=== PATIENT | male | born 1955 | race Caucasian/White ===

== ENCOUNTER 2022-01-02 20:53 | Emergency (ER) | payer BC ==
[~2022-01-02] VITALS: Ht 175.3 cm; Wt 95.3 kg
--- NOTE | 2022-01-02 21:32 | NUR ---
[id number] C/O POSSIBLE OD. [facility] ADMIN NARCAN 4MG IV. BS 113. UPON ASSESSMENT PT RESPONDS TO PAINFUL STIMULI, AGGITATED WITH STAFF VERBALLY AND PHYSICALLY. NOT COOPERATIVE WITH QUESTIONING AXO x0 ON ASSESSMENT [facility] [id number] (11). PT PLACED ON MONITOR AND CHANGED INTO GOWN. SITTER AT BEDSIDE AND SAFETY MEASURES IN PLACE
[2022-01-02] MEDS ORDERED: HALOPERIDOL LACTATE INJ 5 MG/ML VIAL ONE (21:49)
[2022-01-02] MEDS ORDERED: diphenhydrAMINE HCL 50 MG/ML VIAL ONE (21:49)
[2022-01-02] MEDS ORDERED: LORAZEPAM INJ 2 MG/ML VIAL ONE (21:50)
[2022-01-02] MEDS ORDERED: LORAZEPAM INJ 2 MG/ML VIAL IM ONE (22:00)
[2022-01-02] MEDS ORDERED: diphenhydrAMINE HCL 50 MG/ML VIAL IM ONE (22:00)
[2022-01-02] MEDS ORDERED: HALOPERIDOL LACTATE INJ 5 MG/ML VIAL IM ONE (22:00)
[2022-01-02 22:54] LABS: BASOPHILS # (AUTO) 0.1 K/uL (0.0-0.2); BASOPHILS % (AUTO) 0.9 % (0.0-2.0); EOSINOPHILS % (AUTO) 2.1 % (0.0-6.0); HEMATOCRIT 45 % (39-51); HEMOGLOBIN 15.1 g/dL (13.5-17.5); LYMPHOCYTES # (AUTO) 2.9 K/uL (0.8-4.8); LYMPHOCYTES % (AUTO) 37.2 % (20.0-44.0); MEAN CORPUSCULAR HGB CONC 34 g/dl (31.0-36.0); MEAN CORPUSCULAR VOLUME 89 fL (80-96); MONOCYTES # (AUTO) 0.4 K/uL (0.1-1.30); MONOCYTES % (AUTO) 5.4 % (2.0-12.0); NEUTROPHILS # (AUTO) 4.3 K/uL (1.8-8.9); NEUTROPHILS % (AUTO) 54.4 % (43.0-81.0); PLATELET COUNT (AUTO) 189 K/uL (150-450); RED BLOOD CELL COUNT(AUTO) 5.09 MIL/uL (4.5-6.0); WHITE BLOOD COUNT (AUTO) 7.9 K/uL (4.3-11.0)
--- NOTE | 2022-01-02 23:00 | NUR ---
URINE SENT TO LAB
[2022-01-02 23:10] LABS: CREATININE 0.9 mg/dL (0.6-1.3); POTASSIUM 3.8 mmol/L (3.5-5.1)
[2022-01-02 23:25] LABS: ALBUMIN 3.5 g/dL (3.4-5.0); BILIRUBIN,DIRECT 0.1 mg/dL (0.0-0.2); BILIRUBIN,TOTAL 0.2 mg/dL (0.2-1.0); TOTAL PROTEIN, SERUM 7.1 g/dL (6.4-8.2)
[2022-01-02 23:45] LABS: BILIRUBIN,URINE NEGATIVE (NEGATIVE); COLOR,URINE YELLOW (YELLOW); LEUKOCYTE ESTERASE ,URINE NEGATIVE (NEGATIVE); NITRITE, URINE NEGATIVE (NEGATIVE); PH,URINE 5.5 (5.0-8.0); PROTEIN,URINE NEGATIVE (NEGATIVE); UGLUCOSE NEGATIVE (NEGATIVE); UROBILINOGEN,URINE 0.2 EU/dL (0.2)
[2022-01-02 23:48] LABS: BACTERIA,URINE Rare /HPF (None Seen); SQUAMOUS EPITHELIAL CELL,UR Few /HPF (None Seen)
--- NOTE | 2022-01-03 01:41 | NUR ---
PT AWAKE AND ALERT X4 BREATHING UNLABORED. PASSED SWALLOW EVAL. MD MADE AWARE.
--- NOTE | 2022-01-03 02:00 | NUR ---
Patient discharged to home in stable condition. Written and verbal after care instructions given. Patient verbalizes understanding of instruction.IV removed. Catheter intact and site benign. Pressure and 4x4 applied to site. No bleeding noted.
[2022-01-03 02:12] VITALS: BP 164/74
== END 2022-01-03 02:03 | disposition home or self-care (01) ==
LOC: ER 21:03
DX: F10.129 Alcohol abuse with intoxication, unspecified (principal); T50.901A Poisoning by unspecified drugs, medicaments and biological substances, accidental (unintentional), initial encounter; R41.82 Altered mental status, unspecified; Y90.8 Blood alcohol level of 240 mg/100 ml or more; Y92.89 Other specified places as the place of occurrence of the external cause
CPT/HCPCS: 99284; 96372 ×2; 85025; 80048; 87086; 80076; 81001; 36415; 80143; 80320; 80307; J2060; J1200; J1630; G0480